=== PATIENT | male | born 1995 | race Caucasian/White ===

== ENCOUNTER 2018-06-04 19:54 | Observation (INO) | payer OTHER ==
[2018-06-04] MEDS ORDERED: NS 1,000 ML IV ONE (20:38)
--- NOTE | 2018-06-04 20:38 | EDPHY ---
H & P Stated Complaint: CHEST PAIN AND TINGLE IN THE LEFT SIDE OF NECK Time Seen by Provider: 06/04/18 20:38 HPI/ROS: HPI CHIEF COMPLAINT: Chest discomfort. HISTORY OF PRESENT ILLNESS: This is a 22-year-old male, presents emergency room inch left-sided chest discomfort. He describes a squeezing sensation. At times goes to his left scapula. Also developed some tingling in his left arm. This is been happening to him rather constantly since Saturday. However reports over last 24 hr intermittently. No pleuritic pain. Due to the ongoing symptoms and getting worse this evening decided come the emergency room. No shortness of breath. Past Medical History: Hypertension but does not take his blood pressure medications Past Surgical History: Gallbladder removal Social History: Smokes tobacco 2 packs per week, cocaine use, marijuana use, alcohol use 3 times a week but large amount Family History: Significant history for coronary disease in his grandparents. ROS REVIEW OF SYSTEMS: 10 Systems were reviewed and negative with the exception of the elements mentioned in the history of present illness. Exam Constitutional morbidly obese triage nursing summary reviewed, vital signs reviewed, awake/alert. Eyes normal conjunctivae and sclera, EOMI, PERRLA. HENT normal inspection, atraumatic, moist mucus membranes, no epistaxis, neck supple/ no meningismus, no raccoon eyes. Respiratory clear to auscultation bilaterally, normal breath sounds, no respiratory distress, no wheezing. Cardiovascular rate normal, regular rhythm, no murmur, no edema, distal pulses normal. Gastrointestinal soft, non-tender, no rebound, no guarding, normal bowel sounds, no distension, no pulsatile mass. Genitourinary no CVA tenderness. Musculoskeletal no midline vertebral tenderness, full range of motion, no calf swelling, no tenderness of extremities, no meningismus, good pulses, neurovascularly intact. Skin pink, warm, & dry, no rash, skin atraumatic. Neurologic awake, alert and oriented x 3, AAOx3, moves all 4 extremities equally, motor intact, sensory intact, CN II-XII intact, normal cerebellar, normal vision, normal speech. Psychiatric normal mood/affect. Heme/Lymph/Immune no lymphadenopathy. Differential diagnosis includes but is not limited to: ACS, atypical chest pain , pneumothorax, pneumonia, pulmonary embolism, aortic dissection, congestive heart failure, tumor, musculoskeletal pain, esophageal pain, GERD, peptic ulcer disease, pancreatitis Medical Decision Making: Plan for this patient IV establishment with full rainbow, EKG, troponin, chest x-ray, case monitor, D-dimer. Full-dose aspirin, nitroglycerin. See if this improves left-sided chest discomfort. Re-evaluation: EKG interpretation by me on record in [facility] system. Impression time of EKG 2018, sinus rhythm rate of 66 I do not appreciate any signs of acute ischemia no ST elevation. No ST depression. Patient's cardiovascular risk factors include the following: Morbid obesity, underlying hypertension with medication noncompliance, Family history, cocaine use, tobacco use, and binge drinks alcohol. ED x-ray chest 1 view: Negative for acute cardiopulmonary disease. Patient's troponin 0.00. Patient D-dimer negative. Patient's EKG is nonischemic. Patient's chest x-ray shows no acute cardiopulmonary disease. 2249: Patient re-evaluated this time. Resting comfortably. Chest pain improved and is gone after 2 nitroglycerin doses. Source: Patient - Personal History Current Tetanus/Diphtheria Vaccine: Yes Current Tetanus Diphtheria and Acellular Pertussis (TDAP): Yes - Medical/Surgical History Hx Asthma: No Hx Chronic Respiratory Disease: No Hx Diabetes: No Hx Cardiac Disease: Yes Hx Renal Disease: No Hx Cirrhosis: No Hx Alcoholism: No Hx HIV/AIDS: No Hx Splenectomy or Spleen Trauma: No Other PMH: HTN, ANXIETY. CHOLESCETOMY - Social History Smoking Status: Heavy smoker Constitutional: Initial Vital Signs Temperature (C) 36.9 C 06/04/18 20:06 Heart Rate 92 06/04/18 20:06 Respiratory Rate 16 06/04/18 20:06 Blood Pressure 141/114 H 06/04/18 20:06 O2 Sat (%) 97 06/04/18 20:06 O2 Delivery Mode Room Air Allergies/Adverse Reactions: No Known Allergies Allergy (Unverified 06/04/18 20:10) Home Medications: Medication Instructions Recorded NK [No Known Home Meds] 06/04/18 Medical Decision Making - Data Points Laboratory Results: Laboratory Results 06/04/18 20:50 06/04/18 20:50 Medications Given: Discontinued Medications Amlodipine Besylate (Norvasc) 10 mg PO DAILY FELIX Stop: 12/02/18 08:59 Last Admin: 06/05/18 08:04 Dose: 10 mg Aspirin Buffered (Aspirin Ec) 325 mg PO EDNOW ONE Stop: 06/04/18 20:50 Last Admin: 06/04/18 20:58 Dose: 325 mg Sodium Chloride (Ns) 1,000 mls @ 0 mls/hr IV EDNOW ONE; Wide Open PRN Reason: Protocol Stop: 06/04/18 20:39 Last Admin: 06/04/18 20:59 Dose: 1,000 mls Sodium Chloride (Ns) 1,000 mls @ 125 mls/hr IV CONT FELIX Stop: 12/01/18 23:14 Last Admin: 06/05/18 08:35 Dose: 1,000 mls Lorazepam (Ativan) 0.5 - 1 mg PO Q8HRS PRN PRN Reason: Anxiety, Able to Take PO Stop: 12/01/18 23:12 Last Admin: 06/05/18 01:02 Dose: 1 mg Nitroglycerin (Nitrostat) 0.4 mg SL EDNOW ONE Stop: 06/04/18 20:50 Last Admin: 06/04/18 21:13 Dose: 0.4 mg Point of Care Test Results: Chemistry 06/04/18 20:59 POC Troponin I 0.01 ng/mL ng/mL (0.00-0.08) Departure - Departure Disposition: [facility] Acute Clinical Impression: Cocaine abuse Chest pain Qualifiers: Chest pain type: unspecified Qualified Code(s): R07.9 - Chest pain, unspecified Condition: Fair
[2018-06-04] MEDS ORDERED: ASPIRIN EC 325 MG TAB PO ONE (20:49)
[2018-06-04] MEDS: NITROGLYCERIN 0.4 MG BTL SL ONE ×3 (21:01→21:13)
[2018-06-04 21:05] LABS: PLATELET COUNT 302 10^3/uL (150-400)
[2018-06-04 23:10] LABS: CREATINE KINASE 77 IU/L (0-224)
[2018-06-04] MEDS ORDERED: ONDANSETRON 4 MG/2 ML VIAL IVP PRN (23:13)
[2018-06-04] MEDS ORDERED: ACETAMINOPHEN 325 MG TAB PO PRN (23:13)
[2018-06-04] MEDS ORDERED: LORazepam 0.5 MG TAB PO PRN (23:13)
[2018-06-04] MEDS ORDERED: ONDANSETRON DISINTEGRATING 4 MG TAB PO PRN (23:13)
[2018-06-04] MEDS ORDERED: NITROGLYCERIN 0.4 MG BTL SL PRN (23:19)
[2018-06-05] MEDS: NS 1,000 ML IV SCH ×2 (01:02→08:35)
[2018-06-05 01:35] LABS: CREATINE KINASE 67 IU/L (0-224)
--- NOTE | 2018-06-05 04:50 | GHP ---
DATE OF ADMISSION: 06/04/2018 PRIMARY CARE PHYSICIAN: Magen. SOURCE: Patient provides history, appears reliable. EMR was reviewed and case discussed with ED provider. CHIEF COMPLAINT: Chest discomfort. HISTORY OF PRESENT ILLNESS: This is a pleasant 22-year-old gentleman with past medical history significant for benign essential hypertension, morbid obesity with BMI 46.9, tobacco and polysubstance abuse, who presents to the emergency department today with complaints of left chest discomfort, squeezing-type pain. The patient reports pain has been constant and more intermittent for the last 24 hours. He denies any pleuritic-type chest pain not associated with cough. Denies any shortness of breath. The patient did experience some diaphoresis and blurry vision. He denies any nausea or vomiting. He subsequently also developed radiation to his shoulder blades. The patient reports that he has been recovering from an upper respiratory-type illness over the last several weeks. He has not had any fevers or chills, but did have some flushing with diaphoresis, as noted above, on his way to the ER. In the emergency department, patient was given a dose of nitroglycerin as well as a full-dose aspirin. Patient reports that his pain did improve with subsequent doses of nitroglycerin. FAMILY HISTORY: Significant for maternal and paternal grandfathers with a history of CAD and PA. REVIEW OF SYSTEMS: Ten systems reviewed, otherwise negative except as noted above. The patient denies any chills, though did have some flushing with associated diaphoresis, as noted above. SKIN: No rashes or sores. ENT: Patient does report consistent nasal congestion. No sore throat. EYES: Blurry vision, as noted above, temporarily, now resolved. CV: Patient with chest tightness. No palpitations, as noted in the HPI. RESPIRATORY: No shortness of breath. Positive nonproductive cough. GI: No nausea, vomiting, abdominal pain. : No dysuria or hematuria. MUSCULOSKELETAL: Negative for joint pain or myalgias. NEURO: No numbness, tingling. No headache. No focal deficits. Remainder of 10 systems were reviewed and negative. ALLERGIES: No known drug allergies. HOME MEDICATIONS: The patient reports that he is prescribed Norvasc 10 mg p.o. daily, but is not consistent with his intake, as he forgets. PAST MEDICAL HISTORY: Significant for: 1. Benign essential hypertension. 2. Morbid obesity with BMI of 46.9. 3. Tobacco dependence. Patient reports smoking 2 packs per week, but states that he does give away a lot of his cigarettes, so unsure of exact quantity. 4. Polysubstance abuse. Patient denies any IV drug use. He reports using occasional cocaine and occasional marijuana, nothing on a daily basis. 5. Anxiety. PAST SURGICAL HISTORY: Significant for cholecystectomy. 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 He drinks a moderate amount of alcohol. He has reported a history of rare blackouts. He does not drink every day, but will drink quite heavily multiple times weekly. He uses occasional cocaine and marijuana. He denies any IV drug use. CODE STATUS: Full. PHYSICAL EXAMINATION: VITAL SIGNS: Upon arrival to the emergency department, blood pressure 141/114, heart rate 92, respiratory rate 16, O2 saturation 97% on room air, with temperature 36.9. Current vitals: Blood pressure 173/72, heart rate 63, respiratory rate 17, O2 saturation is 97% on room air, temperature of 36.7. GENERAL: No acute distress, pleasant, morbidly obese gentleman, who is lying quietly on bed. HEAD: Normocephalic, atraumatic. EYES : Extraocular muscles grossly intact. Pupils with decreased reactivity to light bilaterally, but symmetric. No scleral icterus or conjunctival injection. ENT: Mucous membranes appear slightly dry. No oropharyngeal erythema or exudates. Dentition in fair condition. NECK: Supple, excessive soft tissue present. CV: Regular rate and rhythm. No murmurs, rubs, or gallops appreciated. No chest wall tenderness to palpation. RESPIRATORY: Lungs are clear to auscultation bilaterally. No wheezes, rales, or rhonchi appreciated. No labored breathing. ABDOMEN: Obese, soft, nontender to palpation. No rebound, guarding, or masses appreciated. Exam limited secondary to body habitus. : No suprapubic tenderness to palpation. No [place] catheter in place. EXTREMITIES: No cyanosis, clubbing, or edema appreciated. Patient with 2+ pedal pulses bilaterally and symmetric. NEURO: Grossly nonfocal. No facial drooping. Moves all extremities as noted above. PSYCH: Patient's affect is slightly flat. He is pleasant and cooperative. He is fatigued and falls asleep intermittently during the exam. LABORATORY STUDIES: 1. WBC is 9.15, H and H are 17.1 and 47.1, MCV 88.9, platelet count is 302, no bands. D-dimer is 0.28. 2. Sodium is 136, potassium 4.0, chloride 101, CO2 is 24, anion gap 11, BUN is 13, creatinine 0.9, GFR greater than 60, glucose 87, calcium is 10.0, with magnesium 1.7. Total bilirubin is 1.1, ALT is 48, AST is 54, alkaline phosphatase is 86. CK is 77, troponin is 0.01. BTNP 23. Total protein 7.1, albumin is 4.3, lipase 99. Repeat troponin and cardiac enzymes are negative. 3. Drug screen positive for cocaine and marijuana. 4. EKG, reviewed myself, shows normal sinus rhythm in the 60s. QTc is 450. No acute ST changes. 5. Chest x-ray image report reviewed. Normal chest. ASSESSMENT AND PLAN: A 22-year-old gentleman with a history of hypertension, mostly untreated, morbid obesity, tobacco abuse, and polysubstance abuse, presents to the emergency department today with complaints of persistent chest tightness, worsening for the last 24 hours. 1. Chest pain. Initial troponin. and EKG are unremarkable. The patient does admit to utilizing cocaine over the last several days. Likely, this represents a coronary vasospasm related to patient's use. Less likely to represent acute coronary syndrome due to coronary artery disease, given patient's young age; however, he does have risk factors including hypertension, obesity, tobacco abuse, and family history. The patient's HEART score of only 2. He may have some cardiac involvement related to cocaine toxicity versus less likely pleuritic chest pain based on the patient's history. Plan is to monitor patient on telemetry overnight. Trend troponins. In setting of cocaine use and the patient's chest pain symptoms, we will add echocardiogram for the a.m. Cessation of alcohol and illicit substances has been encouraged with the patient. He is receptive to receiving resources that may be able to help him quit. 2. Benign essential hypertension. Blood pressures have slightly increased since his arrival. Plan to resume his Norvasc. Echo as noted above. 3. Morbid obesity. BMI of 46.9 Initially. Lifestyle changes and dietary modifications will be recommended. 4. Tobacco abuse. Cessation will be encouraged. Hold off on patch at this time pending cardiac evaluation. 5. Cocaine abuse. Immediate cessation encouraged and resources to be given as noted above. 6. Alcohol dependence. The patient reports heavy use of alcohol multiple times per week. Has had occasional blackouts. Reviewed risks of binge drinking and liver failure. Encouraged cessation. 7. Fluid, electrolyte, and nutrition. IV fluids overnight. Electrolyte monitoring, replacement if needed. Hold off on diet pending repeat troponins. 8. Prophylaxis. SCDs, holding anticoagulation. Patient low risk overall. Encouraged mobilization. 9. Code status is full. DISPOSITION: Patient admitted to observation status on PCU unit for close cardiac monitoring pending evaluation as noted above. /[id number]/MODL MTDD
--- NOTE | 2018-06-05 10:26 | ECHO ---
[email or web address] [address] [address] Main: [phone] Fax: Transthoracic Echocardiogram Name: VIV VÁZQUEZ MR#: [id number] Study Date: 06/05/2018 Study Time: 08:02 AM Date of : 1995 Age: 22 year(s) Height: 193 cm (76 in.) Weight: 167.38 kg (369 lb.) BSA: 2.87 m2 Gender: Male Examination: Echo Indication: Chest Pain Image Quality: Contrast: Requested by: Pricilla Lugo BP: 179 mmHg/57 mmHg Heart Rate: Rhythm: Indication: Chest Pain Procedure Staff [place] Operator: Lida Anderson [facility] Reading Physician: Edgar Robison MD Requesting Provider: Conclusions: Normal size left ventricle. EF is 72 %. No regional wall motion abnormality. Upper normal size right ventricle. There is a moderator band noted in the right ventricle. The mitral valve is normal in appearance and function. The aortic valve is normal in appearance and function. The tricuspid valve is normal in appearance and function. No pericardial effusion. There is no previous echocardiogram for comparison. Measurements: Chambers Valvular Assessment AV/MV Valvular Assessment TV/PV Normal Normal Normal Name Value Range Name Value Range Name Value Range Ao Ruby (MM): 3.7 cm (2.2 cm-3.7 AV Vmax: 1.79 m/s (1 m/s-1.7 cm) m/s) IVSd (2D): 0.8 cm (0.6 cm-1.1 AV meanP mmHg ( - ) cm) MV E Vmax: 0.95 m/s ( - ) LVDd (2D): 5.2 cm (4.2 cm-5.9 MV A Vmax: 0.42 m/s ( - ) cm) MV E/A: 2.26 ( - ) LVDs (2D): 3.3 cm (2.1 cm-4 cm) LVPWd (2D): 1.1 cm (0.6 cm-1 cm) LVEF (MOD4): 72 % (>=55 %) Continued Measurements: Chambers Valvular Assessment AV/MV Patient: VIV VÁZQUEZ Study Date: 06/05/2018 Page 1 of 2 08:02 AM Name Value Name Value LADs: 3.6 cm MV E' Septal: 0.09 m/s MV E/E' Septal: 10.30 MV E/E' Lateral: 6.70 Additional Vessels Name Value Ao Ascendin.3 cm Findings: Left Ventricle: Normal size left ventricle. No LV hypertrophy. Normal global systolic LV function. EF is 72 %. No regional wall motion abnormality. Normal diastolic LV function. Right Ventricle: Upper normal size right ventricle. There is a moderator band noted in the right ventricle. Left Atrium: The left atrium is normal in size. Right Atrium: The right atrium is normal in size. Mitral Valve: The mitral valve is normal in appearance and function. Aortic Valve: The aortic valve is normal in appearance and function. Tricuspid Valve: The tricuspid valve is normal in appearance and function. Pulmonic Valve: The pulmonic valve is normal in appearance and function. Aorta: The aorta is normal. Pericardium: No pericardial effusion. (No Signature Object) Patient: VIV VÁZQUEZ Study Date: 06/05/2018 Page 2 of 2 08:02 AM [id number]
--- NOTE | 2018-06-05 15:47 | PDDCSUM ---
Discharge Summary Discharge Summary: DISCHARGE DIAGNOSES: * chest pain, resolved, ruled out for myocardial infarction * no sign of any other organ injury * acute and ongoing intermittent cocaine abuse, which is most likely the cause of his chest pain episode * alcohol dependence * no IV drug use HOSPITAL COURSE SUMMARY: This patient presented to the ER on admission day with acute chest pain. This symptom itself sounded consistent with angina. He did not have any signs of myocardial infarction, heart failure, or arrhythmia. The there was no hypoxemia or respiratory failure. The patient was observed on court recording monitor overnight and had complete resolution of his presenting symptoms. There are no other new symptoms or problems that appeared and his vital signs remained stable. At this point is felt stable for discharge to home. We had long discussion says with the patient about his cocaine abuse and its effects on his health including this episode of pain as well as risks of series episodes such as myocardial infarction stroke etc. Patient is very accepting and pre should have of all this information and realizes that he is not taking good care of his health. He also abuses alcohol heavily is overweight and has hypertension and he recognizes each of these is problems and wishes to do something for each of these. 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 He was seen by social workers hearing given list of resources in the community. It was not listed on his medication reconciliation but he does take a daily blood pressure medicine which he will continue at home but he does not remember the name of it right now. PENDING TEST RESULTS: None MEDICATION CHANGES: None FOLLOW-UP PLAN: He will make an appointment with a primary care physician He also plans to engage with narcotics anonymous for his cocaine issues Greater than 35 minutes bedside and care coordination time today
--- NOTE | 2018-06-05 15:58 | ASMTCAGE ---
CAGE Do you feel you ought to Answers: Yes cut down on your drinking or drug use? Do people annoy you by Answers: Yes criticizing your drinking or drug use? Do you feel guilty about Answers: Yes your drinking or drug use? 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 Date Signed: 06/05/2018 03:58 PM Electronically Signed By:IRINA Moore
--- NOTE | 2018-06-05 16:27 | ASMTLACE ---
ROBYN Length of stay for Answers: 2 days current admission Acuity / Level of Answers: No Care: Did the patient have an inpatient admission? Comorbidities - select Answers: Other Notes: HTN; Morbid obseity all that apply # of Emergency department Answers: 1-2 visits in the last 6 months Social determinants Answers: History of substance abuse (ETOH, street drugs, prescription drugs, etc.) Mental health diagnosis (anxiety, depression, pers onality disorders, etc.) Score: 10 Date Signed: 06/05/2018 04:27 PM Electronically Signed By:IRINA Moore
--- NOTE | 2018-06-05 16:51 | ASMTCMCOM ---
CM Note CM Note Notes: Pt with anxiety, HTN, morbid obesity, tobacco use in for chest pain which has resolved. Pt endorsed binge drinking and cocaine use. Pt CAGE completed, pt reviewed drug/alcohol resources provided to him. Pt verbalizes an intent to quit ETOH/cocaine and will contact his insurance for available benefit/coverage. Pt states he had a friend who of a drug overdose one year ago so being in the hospital on this day is "eye opening." Pt to establish a PCP. Pt also interested in establishing a psychiatrist, he has not had one since he moved to [place] in August 2017. Date Signed: 06/05/2018 04:50 PM Electronically Signed By:IRINA Moore
[2018-06-05 16:53] VITALS: BP 149/81
--- NOTE | 2018-06-06 17:37 | CPEKG ---
Test Reason : OPEN Blood Pressure : / mmHG Vent. Rate : 066 BPM Atrial Rate : 066 BPM P-R Int : 152 ms QRS Dur : 100 ms QT Int : 429 ms P-R-T Axes : 025 -15 017 degrees QTc Int : 450 ms Sinus rhythm Borderline left axis deviation Confirmed by Ubaldo Carias ([id number]) on 06/06/2018 5:36:30 PM Referred By: Confirmed By:Ubaldo Carias
== END 2018-06-05 16:52 | disposition home or self-care (01) ==
LOC: F2W 23:57
PROVIDERS: ADMIT Family Medicine; ATTEND Family Medicine
DX: R07.89 Other chest pain (principal); F14.10 Cocaine abuse, uncomplicated; F10.20 Alcohol dependence, uncomplicated; F17.210 Nicotine dependence, cigarettes, uncomplicated; E66.01 Morbid (severe) obesity due to excess calories; I10 Essential (primary) hypertension; E86.0 Dehydration; Z91.14 Patient's other noncompliance with medication regimen; Z68.42 Body mass index [BMI] 45.0-49.9, adult; Z82.49 Family history of ischemic heart disease and other diseases of the circulatory system
CPT/HCPCS: 71045; 93005; 93306; 96360; 96361; 99285; G0378; 80305; 84484-PO